=== PATIENT | female | born 1990 | race Two or more races ===

== ENCOUNTER 2021-04-12 21:25 | Emergency (ER) | payer SELFPAY ==
[~2021-04-12] VITALS: Ht 162.6 cm; Wt 90.9 kg
[2021-04-13 00:30] LABS: BILIRUBIN,URINE NEGATIVE (NEG); CLARITY,URINE CLEAR; COLOR,URINE YELLOW; NITRITE,URINE NEGATIVE (NEG); PH,URINE 5.5 (<5.0-8.0); PROTEIN,URINE NEGATIVE (NEG-TRACE); UROBILINOGEN,URINE 0.2 mg/dL (0.2 mg/dL)
[2021-04-13 00:39] LABS: AMORPHOUS SEDIMENT,UR PRESENT /HPF; BACTERIA,URINE FEW /HPF (0-FEW)
--- NOTE | 2021-04-13 01:01 | PHYS DOC ---
Past Medical History Past Medical History: No Pertinent History Past Surgical History: No Surgical History Smoking Status: Never Smoker Alcohol Use: Occasionally Drug Use: None General Adult EDM: Chief Complaint: VAGINAL BLEEDING HPI: HPI: 30 yo F (LMP 02/17) presents the ED with , (patient consents to his/her/their knowledge and involvement in pts' medical care), complaints of bright red vaginal spotting, intermittently for the past month. Patient states she got concerned because she is passed a clot today (has photos on her iphone). Reports she is having intermittent, suprapubic cramps as if she is about to have her menses. Had a positive urine test at [facility] on February 25, was told she was 5 weeks at this time. Patient reports she has monogamous with 1 partner, her , newlywed's of 6 months. Denies any associated vaginal odor, itching or dyspareunia. Denies any IV drug use, alcohol use or tobacco use. Has no past surgical history. Has no routine primary care physician and takes no prescribed medications. Reports h/o left ovarian cyst. Is not concerned for any sexually transmitted diseases. Review of Systems: Review of Systems: Constitutional: Denies fever or chills. [] Eyes: Denies change in visual acuity. [] HENT: Denies nasal congestion or sore throat. [] Respiratory: Denies cough or shortness of breath. [] Cardiovascular: Denies chest pain or edema. [] GI: Denies nausea, vomiting, bloody stools or diarrhea. [] : Denies dysuria or hematuria Musculoskeletal: Denies back pain or flank pain. [] Integument: Denies rash or diaphoresis Neurologic: Denies headache, focal weakness or sensory changes. [] Endocrine: Denies polyuria or polydipsia. [] Lymphatic: Denies swollen glands. [] Psychiatric: Denies depression or anxiety. [] Heart Score: C/O Chest Pain: No Risk Factors: Risk Factors: DM, Current or recent (<one month) smoker, HTN, HLP, family history of CAD, obesity. Risk Scores: Score 0 - 3: 2.5% MACE over next 6 weeks - Discharge Home Score 4 - 6: 20.3% MACE over next 6 weeks - Admit for Clinical Observation Score 7 - 10: 72.7% MACE over next 6 weeks - Early Invasive Strategies Allergies: Allergies: Allergies Coded Allergies Type Severity Reaction Last Updated Verified No Known Drug Allergies 03/30/14 No Physical Exam: PE: Constitutional: Well developed, well nourished, no acute distress, non-toxic appearance. HENT: Normocephalic, atraumatic, Eyes: EOMI, conjunctiva normal, no discharge. Neck: Normal range of motion, supple, Cardiovascular: S1/2 present, regular rhythm Lungs & Thorax: Speaking in full sentences, bilateral equal chest rise, no tachypnea or increased work of breathing Abdomen: soft, no tenderness, Skin: Warm, dry, no erythema, no rash. [] Back: No tenderness, no CVA tenderness. [] Extremities: No tenderness, no cyanosis, no lower extremity edema Neurologic: Alert and oriented X 3, normal motor function, normal sensory function, no focal deficits noted. [] Psychologic: Affect normal, judgement normal, mood normal. [] Pelvic: pt declines stating I'd rather know the baby is okay, she is not concerned for sexually transmitted diseases Current Patient Data: Labs: Laboratory Tests Test 04/12/21 21:31 04/12/21 21:33 Urine Collection Type Unknown Urine Color Yellow Urine Clarity Clear Urine pH 5.5 (<5.0-8.0) Urine Specific [place] >=1.030 (1.000-1.030) Urine Protein Negative mg/dL (NEG-TRACE) Urine Glucose (UA) Negative mg/dL (NEG) Urine Ketones (Stick) Negative mg/dL (NEG) Urine Blood Small (NEG) Urine Nitrite Negative (NEG) Urine Bilirubin Negative (NEG) Urine Urobilinogen Dipstick 0.2 mg/dL (0.2 mg/dL) Urine Leukocyte Esterase Moderate (NEG) Urine RBC 3-5 /HPF (0-2) Urine WBC 11-20 /HPF (0-4) Urine Squamous Epithelial Cells Mod /LPF Urine Amorphous Sediment Present /HPF Urine Bacteria Few /HPF (0-FEW) Urine Mucus Marked /LPF POC Urine HCG, Qualitative Hcg positive (Negative) Vital Signs: Vital Signs Date Time Temp Pulse Resp B/P (MAP) Pulse Ox O2 Delivery O2 Flow Rate FiO2 04/13/21 00:13 98.2 69 16 115/58 (77) 99 Room Air 98.2 EKG: EKG: [] Radiology/Procedures: Radiology/Procedures: IMAGING REPORT Signed PATIENT: SPENSER THURMAN ACCOUNT: [id number] : 1990 LOCATION: ER AGE: 30 SEX: F EXAM STATUS: REG ER ORD. PHYSICIAN: ALEX WISE DO REASON: VAGINAL BLEEDING DURING PROCEDURE: OB <14 WKS W/TV EXAMINATION: US OB <14 WKS +TV (FIRST TRIMESTER PELVIC ULTRASOUND) CLINICAL HISTORY: VAGINAL BLEEDING DURING TECHNIQUE: Sonography of the pelvis was performed by transabdominal and transvaginal techniques. COMPARISON: None. FINDINGS: Uterus: - Orientation: Anteverted - Size: 10.2 x 7.4 x 5.6 - Myometrium: Homogeneous echogenicity - Cervical Length: Gestation: - Intrauterine Gestational Sac: Single present with normal morphology and subjectively normal amniotic fluid volume - Yolk Sac: Present - Embryo: Single present - [place] Rump Length: 15 mm, corresponding gestational age 7 weeks 6 days - Heart Rate: 162 bpm - Perigestational Hemorrhage: Absent Right Ovary: - Size: 3.8 x 2.9 x 2.7 cm - Normal sonographic appearance and blood flow. Dominant follicle versus cyst. Left Ovary: - Size: 3.2 x 3.4 x 2.3 - Normal sonographic appearance and blood flow. Pelvic Free Fluid: Absent IMPRESSION: Single live intrauterine gestation with sonographic estimated gestational age 7 weeks 6 days and estimated date of delivery is 11/24/2021. Electronically signed by: Isidro Morfin DO (04/13/2021 1:39 AM) [facility] Course & Med Decision Making: Course & Med Decision Making Pertinent Labs and Imaging studies reviewed. (See chart for details) Concern for threatened miscarriage and hemodynamically stable patient with complicated UTI. Suspect abdominal cramping is likely more related to urinary tract infection. Patient is a patient's blood flow is very scant on toilet paper with 1 small blood clot less than 1 cm. Patient declines pelvic exam stating she does not have any active pelvic pain, no vaginal discharge and has no concerns for STIs. patient relieved to hear she has an intrauterine . Patient is not a candidate for RhoGam. Will prescribe Vantin. Will discharge home with strict ED return precautions were given for brisk vaginal bleeding, worsening abdominal pain, fever or flulike symptoms. Encouraged urgent outpatient follow-up with PMD and CERTIFIED HEARING INSTRUMENT DISPENSER for definitive management in the next 1 to 2 weeks. Life-threatening processes were considered but are low suspicion at this time, given history, physical exam and ED workup. Pt was educated on all prescription medications and adverse effects. All patient's questions were answered and pt was stable at time of discharge. Life/limb-threatening differential includes but is not limited to, ectopic , septic , sepsis/infection (endometritis, sti/pid, cystitis, pyelonephritis, Luther's gangrene or necrotizing fasciitis, abscess), ovarian torsion, ruptured hemorrhagic ovarian cyst, endometriosis, ureterolithiasis, thrombophlebitis, hemorrhage/DIC, organ prolapse, abdominal aortic aneurysm, mesenteric ischemia, neoplasm, bowel obstruction or surgical abdomen. I have spoken with the patient and/or caregivers. I explained the patient's condition, diagnoses and treatment plan based on the information available to me at this time. I have answered the patient and/or caregiver's questions and addressed any concerns. The patient and/or caregivers have a good understanding of patient's diagnosis, condition and treatment plan as can be expected at this point. Vital signs have been stable. Patient's condition is stable and appropriate for discharge from the emergency department. Patient will pursue further outpatient evaluation with primary care physician or other designated or consulting physician as outlined in the discharge instructions. The patient and/or caregivers are agreeable to this plan of care and follow-up instructions have been explained in detail. The patient and/or caregivers have received these instructions in written form and have expressed an understanding of the discharge instructions. The patient and/or caregivers are aware that any significant change of condition or worsening of symptoms should prompt immediate return to this or the closest emergency department or call to 911. Regine Disclaimer: Regine Disclaimer: This electronic medical record was generated, in whole or in part, using a voice recognition dictation system. Departure Departure Impression: Primary Impression: Threatened miscarriage in early Additional Impression: UTI (urinary tract infection) Disposition: HOME / SELF CARE / HOMELESS Condition: STABLE Referrals: NO PCP (PCP) Follow-up with your primary care physician in 24 to 48 hours OR FOLLOW UP WITH FAMILY MEDICINE: [address] [place] [address] Patient Instructions: Threatened Miscarriage, Urinary Tract Infection Additional Instructions: FOLLOW UP WITH CERTIFIED HEARING INSTRUMENT DISPENSER: FOR DEFINITIVE MANAGEMENT within 1-2 weeks, RETURN TO ED immediately if you should develop any increased vaginal bleeding, severe pain or brisk bleeding [facility] [address] [place] [address] EMERGENCY DEPARTMENT GENERAL DISCHARGE INSTRUCTIONS Thank you for coming to [facility] Emergency Department (ED) today and trusting us with you care. We trust that you had a positive experience in our Emergency Department. If you wish to speak to the department management, you may call the Director at [phone]. YOUR FOLLOW UP INSTRUCTIONS ARE FOLLOWS: 1. Do you have a private Doctor? If you do not have a private doctor, please ask for a resource list of physicians or clinics that may be able to assist you with follow up care. 2. The Emergency Physicain has interpreted your x-rays. The X-Ray specialist will also review them. If there is a change in the findings, you will be notified in 48 hours when at all possible. 3. A lab test or culture has been done, your results will be reviewed and you will be notified if you need a change in treatment. ADDITIONAL INSTRUCTIONS AND INFORMATION: 1. Your care today has been supervised by a physician who is specially trained in emergency care. Many problems require more than one evaluation for a complete diagnosis and treatment. We recommend that you schedule your follow up appointment as recommended to ensure complete treatment of you illness or injury. If you are unable to obtain follow up care and continue to have a problem, or if your condition worsens, we recommend that you return to the ED. 2. We are not able to safely determine your condition over the phone nor are we able to give sound medical advice over the phone. For these safety reasons, if you call for medical advice we will ask you to come to the ED for further evaluation. 3. If you have any questions regarding these discharge instructions please call the ED at [phone]. SAFETY INFORMATION: In the interest of safety, wellness, and injury prevention; we encourage you to wear your sealbelt, if you smoke; quite smoking, and we encourage family to use a protective helmet for bicycling and other sporting events that present an increased risk for head injury. IF YOUR SYMPTOMS WORSEN OR NEW SYMPTOMS DEVELOP, OR YOU HAVE CONCERNS ABOUT YOUR CONDITION; OR IF YOUR CONDITION WORSENS WHILE YOU ARE WAITING FOR YOUR FOLLOW UP APPOINTMENT; EITHER CONTACT YOUR PRIMARY CARE DOCTOR, THE PHYSICIAN WHOSE NAME AND NUMBER YOU WERE GIVEN, OR RETURN TO THE ED IMMEDIATELY. Scripts Cefpodoxime Proxetil (CEFPODOXIME PROXETIL) 200 Mg Tablet 1 TAB PO BID for 10 Days, #20 TAB Prov: ALEX WISE DO 04/13/21 ALEX WISE DO Apr 13, 2021 01:01
[2021-04-13 01:30] LABS: BASO % 0 % (0-3); EOS # 0.2 x10^3/uL (0.0-0.7); EOS % 2 % (0-3); HEMATOCRIT 36.4 % (36.0-47.0); HEMOGLOBIN 12.2 g/dL (12.0-15.5); LYMPH # 2.4 x10^3/uL (1.0-4.8); LYMPH % 27 % (24-48); MEAN CORPUSCULAR HEMOGLOBIN 27 pg (25-35); MEAN CORPUSCULAR HGB CONC 34 g/dL (31-37); MEAN CORPUSCULAR VOLUME 80 fL (79-100); MONO # 0.7 x10^3/uL (0.0-1.1); MONO % 8 % (0-9); NEUT # 5.7 x10^3/uL (1.8-7.7); NEUT % 63 % (31-73); PLATELET COUNT 324 x10^3/uL (140-400); RED BLOOD COUNT 4.53 x10^6/uL (3.50-5.40)
[2021-04-13 01:36] LABS: CALCIUM 8.9 mg/dL (8.5-10.1); CREATININE 0.5 mg/dL (0.6-1.0); GFR 145.9; POTASSIUM 3.8 mmol/L (3.5-5.1)
--- NOTE | 2021-04-13 01:41 | RAD ---
EXAMINATION: US OB <14 WKS +TV (FIRST TRIMESTER PELVIC ULTRASOUND) CLINICAL HISTORY: VAGINAL BLEEDING DURING TECHNIQUE: Sonography of the pelvis was performed by transabdominal and transvaginal techniques. COMPARISON: None. FINDINGS: Uterus: - Orientation: Anteverted - Size: 10.2 x 7.4 x 5.6 - Myometrium: Homogeneous echogenicity - Cervical Length: Gestation: - Intrauterine Gestational Sac: Single present with normal morphology and subjectively normal amnioti c fluid volume - Yolk Sac: Present - Embryo: Single present - [place] Rump Length: 15 mm, corresponding gestational age 7 weeks 6 days - Heart Rate: 162 bpm - Perigestational Hemorrhage: Absent Right Ovary: - Size: 3.8 x 2.9 x 2.7 cm - Normal sonographic appearance and blood flow. Dominant follicle versus cyst. Left Ovary: - Size: 3.2 x 3.4 x 2.3 - Normal sonographic appearance and blood flow. Pelvic Free Fluid: Absent IMPRESSION: Single live intrauterine gestation with sonographic estimated gestational age 7 weeks 6 days and mikey mated date of delivery is 11/24/2021. Electronically signed by: Isidro Morfin DO (04/13/2021 1:39 AM) [facility]
[2021-04-13 01:42] LABS: ALBUMIN 3.1 g/dL (3.4-5.0); ALBUMIN/GLOBULIN RATIO 0.8 (1.0-1.7); TOTAL BILIRUBIN 0.1 mg/dL (0.2-1.0); TOTAL PROTEIN 6.8 g/dL (6.4-8.2)
[2021-04-13 02:43] VITALS: BP 104/55
[2021-04-13] MEDS ORDERED: CEFP200T PO (02:45)
== END 2021-04-13 03:05 | disposition home or self-care (01) ==
LOC: ER 21:25
DX: O20.0 Threatened abortion (principal); O23.41 Unspecified infection of urinary tract in pregnancy, first trimester; N39.0 Urinary tract infection, site not specified; Z3A.01 Less than 8 weeks gestation of pregnancy
CPT/HCPCS: 36415; 76801; 76817; 80053; 81001; 81025; 84702; 85025; 86850; 86900; 86901; 87086; 99284